=== PATIENT | male | born 1990 | race Caucasian/White ===

== ENCOUNTER 2016-08-04 11:26 | Emergency (ER) | payer OTHER ==
[~2016-08-04] VITALS: Ht 182.9 cm; Wt 90.9 kg
[2016-08-04 11:30] VITALS: BP 125/77; PULSE 79; RESP 16; O2SAT 98
--- NOTE | 2016-08-04 11:37 | ED.REPORT ---
HPI-Extremity Problem Lower Date of Service Aug 04, 2016 ED Provider: Kaz Vigil MD Pt is a 26 y/o male presenting to the ED due to right ankle injury which occurred 2 days ago. The patient was at a log show and injured his ankle and is now experiencing pain mostly about the lateral and posterior aspect. He has not taken anything for pain but has been using ice packs. He is able to bear weight and walk. Nursing Notes Stated Complaint: ANKLE Chief Complaint: Extremity Trauma Nursing Notes Reviewed: Yes (Retewi not reconciled) Allergies: Coded Allergies: Penicillins (Verified Allergy, Unknown, 08/04/16) Scheduled PRN Ibuprofen (Ibuprofen) 800 Mg Tablet 800 MG PO TID PRN PRN For Pain General Time Seen by MD: 11:34 Chief Complaint Ankle injury right Hx Obtained From: Patient Arrived By: Walk-in Onset Occurred: 2 days ago Symptom Duration: Since onset Location: : Ankle right Quality: Painful Severity: Current: Moderate Severity: Maximum: Moderate Exacerbated by: Range of motion Recent Healthcare: No recent doctor visit, No recent hospitalization Similar Sx Previous: No Past Medical History Past Medical History Denies Past Surgical History Denies Smoking History Current Every Day Smoker Social History Alcohol Use: "Social" Drug Use: Denies drug use Ambulatory Status Independent Review of Systems Constitutional: Denies: Chills, Fever Musculoskeletal: Reports: Extremity pain, Extremity swelling, Denies: Back pain Neurologic: Denies: Headache, Lightheaded Complete sys rev & neg: except as marked. Physical Exam Initial Vital Signs Vital Signs (First) Date Time Temp Pulse Resp B/P Pulse Ox O2 Delivery O2 Flow Rate FiO2 08/04/16 11:30 36.6 79 16 125/77 98 Room Air Initial VS: Reviewed, Vital signs normal Head / Eyes: Atraumatic, Normocephalic, PERRL ENT: Mucous membranes moist, Conjunctiva normal, No scleral icterus Neck: Supple, Full range of motion Respiratory: No respiratory distress Cardiovascular: Intact distal pulses Abdomen / GI: Soft, No distention Upper Extremities: Vascular intact, Neuro intact, No swelling, No tenderness Skin: Warm, Dry, No cyanosis Neurologic: Alert, Oriented, Nonfocal Psychiatric: Mood/affect normal, Behavior normal, Normal thought content Lower Extremity / Pelvis / MS: No deformity, Neurologic intact, Vascular intact , No compartment syndrome No proximal tib/fib tenderness No knee effusion Ankle / Foot: No deformity, Neurologic intact, Vascular intact, No compartment syndrome RLE: Tenderness and swelling about the lateral malleolus No foot tenderness General/Constitutional: Awake, Alert, No acute distress, Well appearing, Cooperative, Not toxic appearing Interpretation & Diagnostics X-Ray Interpretation Xray Interpretation: IMPRESSION: No fracture. Dictated by: Jim Monzon M.D. on 08/04/2016 at 11:58 Approved by: Jim Monzon M.D. on 08/04/2016 at 12:00 Study Performed: 3 views X-Ray Ordered: Ankle right Interpretation / Wet Read by: Interpret - Radiologist Re-Eval/Medical Decision Med Decision/Clinical Course This is a healthy 26-year-old male presents with an inversion injury to the right ankle, he is still able to bear weight but has swelling and pain over the lateral malleolus. Knee exam, no effusion or proximal fibular or tibial tenderness. Says swelling over the deltoid ligaments, but no tenderness over the fifth metatarsal or foot. There are no open wounds in the and foot and ankle are neurovascularly intact. Plain radiographs are negative for fracture. Patient was placed in a air splint, he is able to bear weight crutches are not required. Supportive conservative measures were discussed, patient is being discharged in ibuprofen. Routine care, precautions and return instructions reviewed. Patient is discharged in stable Source of Hx: Old records Re-Evaluation/Progress : Time of Eval: 12:07 Re-Evaluation/Progress Note: Pt rechecked. Discussed imaging. Informed pt of plan for treatment. Pt understands and agrees with plan for treatment. F/U instructions and RTER warnings given. All questions addressed. Differential Diagnosis: Positive: Sprain (R ankle), Negative: Abrasion, Abscess, Ankle dislocation, Calcaneal fracture, Cellulitis, Compartment syndrome, Fracture, Guillain-[place] syndrome, Hip fracture, Lesser trochant fracture, Nail bed laceration, Neurovascular injury, Open fracture, Paronychia, Venous thromboembolism Counseled Regarding: Diagnosis, Need for follow-up, When/why to return to ED Discharge & Departure Impression: Primary Impression: Right ankle sprain Encounter type: initial encounter Involved ligament of ankle: unspecified ligament Qualified Code: S93.401A - Sprain of unspecified ligament of right ankle, initial encounter Disposition: Home Discharge Condition All VS Reviewed: Yes Condition: Stable Additional Instructions: 1. No fractures were appreciated on Xray of the right ankle. 2. This means you have an ankle sprain, typically of the deltoid ligament. Although painful this should heal. 3. It is recommend using the air splint for support. It is okay to put weight on the ankle as tolerated, but do not return to sports or full activities until pain free. 4. Continue to ice 20 minutes at a time over the next 24 hours to help with swelling. 5. Take ibuprofen 400-800 mg up to 3 times a day as needed for soreness. 6. Symptoms should improve over the next 1-2 weeks, and that he likely has some off-and-on soreness over the next 1-2 months before the ankle fully heals. Return to full sport activities until pain completely resolves Referrals: [facility] Scribe Attestation Portions of this note were transcribed by Lio Calvin. I, Dr. Vigil personally performed the history, physical exam and medical decision-making; I reviewed and confirmed the accuracy of the information in the transcribed note. Signed by Aline Cameron, 08/04/16 - 1145 Kaz Vigil MD Aug 04, 2016 11:37 LIO CALVIN Aug 04, 2016 11:43
--- NOTE | 2016-08-04 12:02 | DRSVH ---
PROCEDURE: X-RAY RIGHT ANKLE, MINIMUM THREE VIEWS ([id number]) INDICATIONS: trauma, right ankle pain TECHNIQUE: 3 views of the ankle were acquired. COMPARISON: None. FINDINGS: Bones: No fractures or dislocations. Ankle mortise is normally aligned. No suspicious bony lesions . Soft tissues: Mild soft tissue swelling overlying the lateral malleolus No tibiotalar joint effusion . Achilles tendon appears normal. IMPRESSION: No fracture. Dictated by: Jim Monzon M.D. on 08/04/2016 at 11:58 Approved by: Jim Monzon M.D. on 08/04/2016 at 12:00
[2016-08-04] MEDS ORDERED: IBUP800T28 PO (12:05)
== END 2016-08-04 12:51 | disposition home or self-care (01) ==
LOC: SED 11:26
DX: S93.401A Sprain of unspecified ligament of right ankle, initial encounter (principal); X50.1XXA Overexertion from prolonged static or awkward postures, initial encounter; Y93.9 Activity, unspecified; Y92.89 Other specified places as the place of occurrence of the external cause; Y99.9 Unspecified external cause status; Z88.0 Allergy status to penicillin; F17.200 Nicotine dependence, unspecified, uncomplicated